=== PATIENT | male | born 1995 | race Caucasian/White ===

== ENCOUNTER 2020-05-04 18:50 | Emergency (ER) | payer OTHER, SELFPAY ==
[2020-03-10 07:15] VITALS: BMI 24.3
[2020-05-04 18:53] VITALS: BP 135/78; PULSE 64; RESP 17; TEMP 37; O2SAT 99; BMI 23.4
--- NOTE | 2020-05-04 19:29 | ED.DCSUM_ITS ---
- ER Visit Summary Date of Service: 05/04/20 Chief Complaint: Suicidal ideation History of Present Illness: The patient is a [address] Tai Murray. He also sees a counselor. He reports that he is been on Effexor for the past 2 weeks. Today he was upset because he may have his 2 kids taken away from him. He was pulled over by police driving at a high rate of speed. He told them that he was going to go into a ditch or hit a tree in an attempt to kill himself. He is telling me that he wanted to try to roll his car. He does admit to being suicidal. Physical Examination: Vitals: Stable. Afebrile. General: Well-nourished and well-developed. Head: Normocephalic atraumatic. Neck: Supple, no lymphadenopathy. No JVD. Nontender. Cardiovascular: Regular rate and rhythm. No murmurs. Respiratory: No respiratory distress. Clear to auscultation bilaterally. Abdominal: Soft, nontender, nondistended, normal bowel sounds. No guarding, rebound, or peritoneal signs. Back: Nontender. Extremities: Nontender, no edema. Skin: Normal color, no rash. Neurologic: Alert and oriented ?3. Cranial nerves II through XII are intact. Normal strength and sensation. Mental status exam: Patient appears their stated age. Good posture and grooming. Good eye contact. Normal rate, volume, and latency of speech. No homicidal ideation. No auditory or visual hallucinations. Flow of thought is logical. Insight and judgment is fair. Test Results: CBC is normal. Chem-7 shows a chloride of 110. Tox screen is negative. Alcohol is negative. Emergency Department Course and Treatment: Patient is resting comfortably. He was given his dose of Effexor here. Treatment Plan: The patient was discussed with case management. He will require hospitalization for suicidal ideation. Disposition: Pending Impression: 1. Suicidal ideation. This note was generated with [employer] software. It may contain incorrect words, spelling, and punctuation that were not noted in review of the chart prior to signing ED Disposition - Plan for ED Patient: Referrals: Tai Murray MD [Primary Care Provider] -
[2020-05-04 19:41] LABS: Absolute Lymphocyte Count 2.09 X10^3/uL (0.83-4.51); Absolute Neutrophil Count 4.4 X10^3/uL (2.0-7.7); Basophil# 0.06 X10^3/uL; Basophil% 0.8 % (0-1); Eosinophil# 0.15 X10^3/uL; Eosinophils% 2.1 % (0-5); Hematocrit 40.3 % (40-54); Hemoglobin 14.4 g/dL (13.0-16.5); Lymphocyte # 2.09 X10^3/ul (4.0); Lymphocyte % 28.9 % (19-41); Mean Corp Hgb Conc 35.7 g/dL (32-36); Mean Corpuscular Hgb 30.6 pg (27.0-32.0); Mean Corpuscular Volume 85.6 fL (80-94); Mean Platelet Vol. 9.2 fl (6.2-12.0); Monocyte# 0.49 X10^3/uL; Monocyte% 6.8 % (0-10); NRBC Flagged by Analyzer 0 % (0-5); Neutrophil # 4.43 X10^3/uL (2.7-7.7); Neutrophil % 61.1 % (47-70); Platelet Count 307 K/mm3 (150-450); RBC Distribution Width CV 11.9 % (11.6-14.6); RBC Distribution Width SD 36.5 fl (35.1-43.9); Red Blood Count 4.71 M/mm3 (4.6-6.2); White Blood Count 7.2 K/mm3 (4.4-11.0)
[2020-05-04 19:51] VITALS: RESP 18
[2020-05-04 19:55] LABS: Anion Gap 3 (5-15); BUN 17 mg/dL (7-18); BUN/Creat Ratio 16.5 RATIO (10-20); Chloride 110 mmol/L (98-107); Creatinine, Serum 1.03 mg/dL (0.70-1.30); EST Glomerular Filtration Rate 94 mL/min (>60); Est Glom Filt Rate - Afr Amer 114 mL/min (>60); Estimated Creatinine Clearance 124.98 ml/min; Glucose 96 mg/dL (74-106); Potassium 3.7 mmol/L (3.5-5.1); Sodium Level 141 mmol/L (136-145)
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
[2020-05-04 20:37] VITALS: RESP 14
[2020-05-04 21:00] VITALS: RESP 18
[2020-05-04 21:12] LABS: Amphetamine Urine VISTA NEGATIVE (<1000 ng/mL); Barbiturate Urine VISTA NEGATIVE (< 200 ng/mL); Benzodiazepine Urine VISTA NEGATIVE (< 200 ng/mL); Cocaine Urine VISTA NEGATIVE (< 300 ng/mL); Ecstacy Urine VISTA NEGATIVE (< 500 ng/mL); Methadone Urine VISTA NEGATIVE (< 300 ng/mL); PCP Urine VISTA NEGATIVE (< 25 ng/mL); THC Urine VISTA NEGATIVE (< 50 ng/mL); Vista UDS pH Range 6
--- NOTE | 2020-05-04 21:35 | CM.ED ---
SOCIAL WORK Referral called to [facility]. Informed only 1 male bed left and already have one referral under review. public health social worker states will review both referrals and get back to this worker if able to accept patient. Referral faxed at this time. Vince Mackey, HUMAN RESOURCES DEPARTMENT SUPERVISOR, HOT PIPE GAUGER
--- NOTE | 2020-05-04 21:37 | CM.ED ---
SOCIAL WORK Patient gave permission for this worker to update his mother, Tena who called in requesting update. Call to patient's mother, no answer, left message with this worker's call back information. Vince Mackey, BOXING INSPECTOR, LEAKAGE TESTER
--- NOTE | 2020-05-04 21:47 | CM.ED ---
SOCIAL WORK Received call back from patient's mother, Tena ([phone]). Mother has spoken to her mother who updated on patient's status. Informed a referral has been made to [facility], awaiting acceptance at this time. Emotional support provided. Vince Mackey, FUEL TECHNICIAN, FURRIER APPRENTICE
[2020-05-04] MEDS: Venlafaxine HCl 25 MG Tablet 37.5 MG PO (21:52)
[2020-05-04 22:00] VITALS: BP 134/80; PULSE 79; RESP 18; O2SAT 99
--- NOTE | 2020-05-04 22:17 | CM.ED ---
SOCIAL WORK Call from [facility]. Patient accepted by Dr. Mendoza to the [facility] Unit. Nurse to call report to . Street Light Servicer Helper to set up transport. Vince Mackey, STRAP BUCKLER MACHINE, ATTENDING PATHOLOGIST
--- NOTE | 2020-05-04 22:33 | CM.ED ---
SOCIAL WORK Patient and grandmother updated on acceptance to [facility]. Call to patient's mother to update on acceptance. Vince Mackey, WELDING FOREMAN, PRECINCT CAPTAIN
[2020-05-04 22:47] VITALS: BP 134/80; PULSE 79; RESP 16; TEMP 36.6; O2SAT 99
[2020-05-05] VITALS: RESP 18
== END 2020-05-05 01:09 ==
PROVIDERS: Emergency Provider Emergency Medicine; PCP Family Medicine
DX: R45.851 Suicidal ideations (principal); F32.9 Major depressive disorder, single episode, unspecified
CPT/HCPCS: 36415; 80048; 80307; 80320; 85025; 99285; G0480